=== PATIENT | male | born 1980 | race Caucasian/White ===

== ENCOUNTER 2023-07-05 12:47 | Emergency (ER) | payer OTHER ==
[2023-07-05 12:59] VITALS: RESP 18; BMI 27.6
[2023-07-05] MEDS ORDERED: IBUPROFEN 600 MG TABLET (FP) PO ONE ×2 (14:51→14:54)
[2023-07-05 16:56] VITALS: BP 114/54; PULSE 78; TEMP 98.2
== END 2023-07-05 17:46 | disposition home or self-care (01) ==
LOC: JERFT 12:47
DX: S62.92XA Unspecified fracture of left hand, initial encounter for closed fracture (principal); M25.522 Pain in left elbow; M79.632 Pain in left forearm; M25.532 Pain in left wrist; M79.642 Pain in left hand; W18.39XA Other fall on same level, initial encounter; Y99.0 Civilian activity done for income or pay
CPT/HCPCS: 73070-TC-LT-FY; 73090-TC-LT-FY; 73110-TC-LT-FY; 73130-TC-LT-FY; 73200-TC-RT; 99284-25